=== PATIENT | male | born 2000 | race Caucasian/White ===

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

== ENCOUNTER 2023-10-13 01:50 | Emergency (ER) | payer BC, MEDICAID ==
[~2023-10-13] VITALS: Ht 182.9 cm; Wt 113.4 kg
[~2023-10-13 01:50] MED LIST: CLOT1CRE90 TP
[2023-10-13 01:55] VITALS: BP 132/83; PULSE 87; RESP 17; TEMP 97.8; O2SAT 100
[2023-10-13] MEDS ORDERED: MORPHINE SULFATE 4 MG/ML SYR IVP ONE (02:30)
[2023-10-13] MEDS ORDERED: ONDANSETRON 4 MG/2 ML VIAL IVP ONE (02:30)
[2023-10-13] MEDS ORDERED: NACL 0.9% 1,000 ML IV ONE (02:30)
[2023-10-13 03:00] LABS: BASOPHILS # (AUTO) 0.1 K/uL (0.00-0.22); BASOPHILS % (AUTO) 0.6 % (0.0-2.0); EOSINOPHILS # (AUTO) 0.4 K/uL (0-0.4); EOSINOPHILS % (AUTO) 4.3 % (0.0-4.0); HEMATOCRIT 43.3 % (36-52); HEMOGLOBIN 15.3 g/dL (12.0-18.0); LYMPHOCYTES # (AUTO) 2.2 K/uL (2.0-11.5); LYMPHOCYTES % (AUTO) 21.5 % (20.5-51.1); MEAN CORPUSCULAR HEMOGLOBIN 28 pg (27-31); MEAN CORPUSCULAR HGB CONC 35 g/dL (33-37); MONOCYTES # (AUTO) 1.2 K/uL (0.8-1.0); MONOCYTES % (AUTO) 11.7 % (1.7-9.3); NEUTROPHILS # (AUTO) 6.4 K/uL (1.8-7.7); NEUTROPHILS % (AUTO) 61.9 % (42.2-75.2); PLATELET COUNT (AUTO) 231 K/uL (140-450); RED BLOOD CELL COUNT(AUTO) 5.41 MIL/uL (4.20-6.10); RED CELL DISTRIBUTION WIDTH 13.9 % (11.6-13.7); WHITE BLOOD COUNT (AUTO) 10.3 K/uL (4.8-10.8)
[2023-10-13 03:10] LABS: ANION GAP 10.2 (8-16); CALCIUM 8.7 mg/dL (8.5-10.1); CARBON DIOXIDE 30.5 mmol/L (21-32); CREATININE 0.8 mg/dL (0.6-1.3); POTASSIUM 3.7 mmol/L (3.5-5.1)
[2023-10-13 03:13] LABS: ALBUMIN 3.5 g/dL (3.4-5.0); BILIRUBIN,DIRECT 0.2 mg/dL (0.0-0.3); TOTAL BILIRUBIN 0.6 mg/dL (0.0-1.0); TOTAL PROTEIN, SERUM 8.6 g/dL (6.4-8.2)
[2023-10-13] MEDS ORDERED: KETOROLAC 30 MG/ML VIAL IVP ONE (03:35)
[2023-10-13] MEDS ORDERED: IBUP-2218 PO (04:32)
[2023-10-13] MEDS ORDERED: ONDA-188 SL (04:32)
[2023-10-13] MEDS ORDERED: ACET-8905 PO (04:32)
[2023-10-13 04:43] VITALS: BP 132/83; PULSE 87; RESP 17; TEMP 97.8; O2SAT 100
== END 2023-10-13 04:42 | disposition home or self-care (01) ==
LOC: MED 01:50
DX: K80.20 Calculus of gallbladder without cholecystitis without obstruction (principal); Z79.899 Other long term (current) drug therapy; Z79.1 Long term (current) use of non-steroidal anti-inflammatories (NSAID)
CPT/HCPCS: 36415; 76705; 80048; 80076; 83605; 83690; 85025; 87040; 96361; 96374; 96375; 99285; J1885; J2270; J2405; J7030; Q0092

== ENCOUNTER 2024-03-24 16:20 | Emergency (ER) | payer MEDICAID ==
[~2024-03-24] VITALS: Ht 182.9 cm; Wt 108.9 kg
[~2024-03-24 16:20] MED LIST changes: +ACET-8905 PO; +IBUP-2218 PO; +ONDA-188 SL
[2024-03-24 16:50] VITALS: BP 139/90; PULSE 74; RESP 20; TEMP 97.6
[2024-03-24 17:22] LABS: BASOPHILS # (AUTO) 0.1 K/uL (0.00-0.22); BASOPHILS % (AUTO) 0.5 % (0.0-2.0); EOSINOPHILS # (AUTO) 0.2 K/uL (0-0.4); EOSINOPHILS % (AUTO) 1.6 % (0.0-4.0); HEMATOCRIT 45.3 % (36-52); HEMOGLOBIN 15.3 g/dL (12.0-18.0); LYMPHOCYTES # (AUTO) 1.5 K/uL (2.0-11.5); LYMPHOCYTES % (AUTO) 12.4 % (20.5-51.1); MEAN CORPUSCULAR HEMOGLOBIN 27 pg (27-31); MEAN CORPUSCULAR HGB CONC 34 g/dL (33-37); MONOCYTES # (AUTO) 1.2 K/uL (0.8-1.0); MONOCYTES % (AUTO) 9.7 % (1.7-9.3); NEUTROPHILS # (AUTO) 9.3 K/uL (1.8-7.7); NEUTROPHILS % (AUTO) 75.8 % (42.2-75.2); PLATELET COUNT (AUTO) 254 K/uL (140-450); RED BLOOD CELL COUNT(AUTO) 5.59 MIL/uL (4.20-6.10); RED CELL DISTRIBUTION WIDTH 14.4 % (11.6-13.7); WHITE BLOOD COUNT (AUTO) 12.3 K/uL (4.8-10.8)
[2024-03-24 17:38] LABS: ANION GAP 16.7 (8-16); CARBON DIOXIDE 23.8 mmol/L (21-32); POTASSIUM 3.5 mmol/L (3.5-5.1)
[2024-03-24 17:55] LABS: BILIRUBIN,DIRECT 0.6 mg/dL (0.0-0.3); TOTAL BILIRUBIN 1.3 mg/dL (0.0-1.0); TOTAL PROTEIN, SERUM 7.7 g/dL (6.4-8.2)
[2024-03-24] MEDS: KETOROLAC 30 MG/ML VIAL IVP ONE (18:03)
[2024-03-24 18:21] LABS: BILIRUBIN,URINE 1+ (NEGATIVE); BLOOD, URINE NEGATIVE (NEGATIVE); COLOR,URINE YELLOW (YELLOW); LEUKOCYTE ESTERASE ,URINE 1+ (NEGATIVE); NITRITE, URINE NEGATIVE (NEGATIVE); PROTEIN,URINE TRACE (NEGATIVE); UGLUCOSE NEGATIVE (NEGATIVE)
[2024-03-24 18:24] LABS: APPEARANCE,URINE SLIGHTLY HAZY (CLEAR)
[2024-03-24 18:26] LABS: BACTERIA,URINE 1+ /HPF (None Seen); ICTOTEST POSITIVE (NEGATIVE); RBC,URINE 0 /HPF (0-5); SQUAMOUS EPITHELIAL CELL,UR 4-10 (MOD) /LPF (0-3 (FEW)); WBC,URINE 0-5 /HPF (0-5)
[2024-03-24 18:27] LABS: MUCUS,URINE None Seen /LPF (None Seen)
[2024-03-24] MEDS ORDERED: cefTRIAXone 1,000 MG VIAL ONE ×2 (19:10→19:29)
[2024-03-24 21:05] VITALS: BP 140/94; PULSE 70; RESP 18; O2SAT 97
[2024-03-24] MEDS ORDERED: METR-435 PO (21:43)
== END 2024-03-24 21:56 | disposition home or self-care (01) ==
LOC: MED 16:20
DX: N39.0 Urinary tract infection, site not specified (principal); K81.0 Acute cholecystitis; Z79.899 Other long term (current) drug therapy
CPT/HCPCS: 36415; 76705; 80048; 80076; 81001; 83690; 85025; 87040; 87086; 93005; 96365; 96375; 99285; J0696; J1885; Q0092

== ENCOUNTER 2024-04-09 23:00 | Emergency (ER) | payer MEDICAID ==
[~2024-04-09] VITALS: Ht 182.9 cm; Wt 105.2 kg
[~2024-04-09 23:00] MED LIST changes: +METR-435 PO
[2024-04-09 23:24] VITALS: BP 155/68; PULSE 85; RESP 20; TEMP 98.4; O2SAT 98
[2024-04-09] MEDS: ONDANSETRON 4 MG ODT PO ONE (23:31)
[2024-04-10 01:32] VITALS: BP 126/87; PULSE 93; RESP 18; O2SAT 99
[2024-04-10] MEDS ORDERED: FAMO-90 PO (01:33)
[2024-04-10] MEDS ORDERED: SUCR1TAB56 PO (01:33)
== END 2024-04-10 01:40 | disposition home or self-care (01) ==
LOC: MED 23:00
DX: R11.2 Nausea with vomiting, unspecified (principal); R10.13 Epigastric pain; I10 Essential (primary) hypertension; Z79.899 Other long term (current) drug therapy
CPT/HCPCS: 81002; 99283; Q0162

== ENCOUNTER 2024-04-26 00:08 | Emergency (ER) | payer MEDICAID ==
[~2024-04-26] VITALS: Ht 182.9 cm; Wt 104.3 kg
[~2024-04-26 00:08] MED LIST changes: +FAMO-90 PO; +SUCR1TAB56 PO
[2024-04-26 00:16] VITALS: BP 135/72; PULSE 83; RESP 20; TEMP 96.2; O2SAT 99
[2024-04-26] MEDS: KETOROLAC 60 MG/2 ML VIAL IM ONE (01:55)
[2024-04-26 02:15] LABS: ANION GAP 12.1 (8-16); CALCIUM 9.2 mg/dL (8.5-10.1); CARBON DIOXIDE 28.3 mmol/L (21-32); POTASSIUM 3.4 mmol/L (3.5-5.1)
[2024-04-26 02:16] LABS: APPEARANCE,URINE CLEAR (CLEAR); BILIRUBIN,URINE NEGATIVE (NEGATIVE); BLOOD, URINE NEGATIVE (NEGATIVE); COLOR,URINE YELLOW (YELLOW); LEUKOCYTE ESTERASE ,URINE NEGATIVE (NEGATIVE); NITRITE, URINE NEGATIVE (NEGATIVE); PROTEIN,URINE NEGATIVE (NEGATIVE); UGLUCOSE NEGATIVE (NEGATIVE)
[2024-04-26 02:22] LABS: ALBUMIN 3.9 g/dL (3.4-5.0); BILIRUBIN,DIRECT 0.6 mg/dL (0.0-0.3); TOTAL BILIRUBIN 1.3 mg/dL (0.0-1.0); TOTAL PROTEIN, SERUM 7.2 g/dL (6.4-8.2)
[2024-04-26 02:39] LABS: BASOPHILS # (AUTO) 0.1 K/uL (0.00-0.22); BASOPHILS % (AUTO) 0.6 % (0.0-2.0); EOSINOPHILS # (AUTO) 0.2 K/uL (0-0.4); HEMATOCRIT 42.3 % (36-52); HEMOGLOBIN 14.8 g/dL (12.0-18.0); LYMPHOCYTES # (AUTO) 1.9 K/uL (2.0-11.5); LYMPHOCYTES % (AUTO) 20.9 % (20.5-51.1); MEAN CORPUSCULAR HEMOGLOBIN 29 pg (27-31); MEAN CORPUSCULAR HGB CONC 35 g/dL (33-37); MEAN CORPUSCULAR VOLUME 82.6 fL (80-94); MONOCYTES # (AUTO) 0.8 K/uL (0.8-1.0); MONOCYTES % (AUTO) 9.1 % (1.7-9.3); NEUTROPHILS # (AUTO) 6.1 K/uL (1.8-7.7); NEUTROPHILS % (AUTO) 67.4 % (42.2-75.2); PLATELET COUNT (AUTO) 226 K/uL (140-450); RED BLOOD CELL COUNT(AUTO) 5.13 MIL/uL (4.20-6.10); RED CELL DISTRIBUTION WIDTH 14.1 % (11.6-13.7)
[2024-04-26] MEDS ORDERED: TRAM-748 PO (02:53)
[2024-04-26] MEDS ORDERED: NAPR-1704 PO (02:53)
[2024-04-26 03:01] VITALS: BP 135/72; PULSE 83; RESP 20; TEMP 96.2; O2SAT 99
== END 2024-04-26 03:01 | disposition home or self-care (01) ==
LOC: MED 00:08
DX: K80.50 Calculus of bile duct without cholangitis or cholecystitis without obstruction (principal); I10 Essential (primary) hypertension; Z79.1 Long term (current) use of non-steroidal anti-inflammatories (NSAID); Z79.899 Other long term (current) drug therapy
CPT/HCPCS: 36415; 80048; 80076; 81003; 82150; 83690; 85025; 96372; 99283; J1885

== ENCOUNTER 2024-06-03 22:23 | Inpatient (IN) | payer MEDICAID ==
[~2024-06-03] VITALS: Ht 182.9 cm; Wt 104.3 kg
[~2024-06-03 22:23] MED LIST changes: +NAPR-1704 PO
[2024-06-03 22:31] VITALS: BP 152/111; PULSE 78; RESP 20; TEMP 97.8; O2SAT 100
--- NOTE | 2024-06-03 22:45 | NUR ---
to bed 12 following triage
[2024-06-03] MEDS: ONDANSETRON 4 MG/2 ML VIAL IVP ONE (22:56)
[2024-06-03] MEDS: MORPHINE SULFATE 4 MG/ML SYR IVP ONE ×2 (22:57→23:50)
--- NOTE | 2024-06-03 23:05 | NUR ---
Ultrasound at bedside.
[2024-06-03 23:09] LABS: BASOPHILS # (AUTO) 0.1 K/uL (0.00-0.22); BASOPHILS % (AUTO) 0.4 % (0.0-2.0); EOSINOPHILS # (AUTO) 0.1 K/uL (0-0.4); HEMATOCRIT 43.2 % (36-52); HEMOGLOBIN 14.7 g/dL (12.0-18.0); MEAN CORPUSCULAR HEMOGLOBIN 28 pg (27-31); MEAN CORPUSCULAR HGB CONC 34 g/dL (33-37); MEAN CORPUSCULAR VOLUME 82.1 fL (80-94); MONOCYTES # (AUTO) 1.1 K/uL (0.8-1.0); MONOCYTES % (AUTO) 8.2 % (1.7-9.3); NEUTROPHILS # (AUTO) 10.3 K/uL (1.8-7.7); NEUTROPHILS % (AUTO) 75.4 % (42.2-75.2); PLATELET COUNT (AUTO) 239 K/uL (140-450); RED BLOOD CELL COUNT(AUTO) 5.27 MIL/uL (4.20-6.10); RED CELL DISTRIBUTION WIDTH 14.5 % (11.6-13.7); WHITE BLOOD COUNT (AUTO) 13.6 K/uL (4.8-10.8)
--- NOTE | 2024-06-03 23:17 | NUR ---
ULTRASOUND AT BEDSIDE
--- NOTE | 2024-06-03 23:17 | NUR ---
URINE AND BLOOD COLLECTED
[2024-06-03 23:23] LABS: APPEARANCE,URINE CLEAR (CLEAR); BILIRUBIN,URINE NEGATIVE (NEGATIVE); BLOOD, URINE NEGATIVE (NEGATIVE); COLOR,URINE YELLOW (YELLOW); LEUKOCYTE ESTERASE ,URINE 1+ (NEGATIVE); NITRITE, URINE NEGATIVE (NEGATIVE); PH,URINE 6.5 (5.0-9.0); PROTEIN,URINE NEGATIVE (NEGATIVE); UGLUCOSE NEGATIVE (NEGATIVE); UROBILINOGEN,URINE 0.2 EU/dL (0.2 - 1)
[2024-06-03 23:39] LABS: BACTERIA,URINE 1+ /HPF (None Seen); MUCUS,URINE 1+ /LPF (None Seen); RBC,URINE 0-5 /HPF (0-5); SQUAMOUS EPITHELIAL CELL,UR 0-3 (FEW) /LPF (0-3 (FEW)); WBC,URINE 20-60 /HPF (0-5)
[2024-06-03 23:39] LABS: ANION GAP 15.4 (8-16); CALCIUM 9.3 mg/dL (8.5-10.1); CARBON DIOXIDE 24.3 mmol/L (21-32); CREATININE 1.1 mg/dL (0.6-1.3)
[2024-06-03] MEDS: NACL 0.9% 1,000 ML IV ONE (23:40)
[2024-06-03 23:47] LABS: POTASSIUM 2.7 mmol/L (3.5-5.1)
[2024-06-04] VITALS (10 sets, daily range): BP systolic 120–142; BP diastolic 61–92; PULSE 75–96; RESP 16–18; TEMP 98.1–100.8; O2SAT 95–100
[2024-06-04] MEDS: POTASSIUM CHL 20 MEQ/NACL 0.9% 1,000 ML IV ONE
[2024-06-04 00:09] LABS: BILIRUBIN,DIRECT 0.3 mg/dL (0.0-0.3); TOTAL BILIRUBIN 0.9 mg/dL (0.0-1.0); TOTAL PROTEIN, SERUM 7.9 g/dL (6.4-8.2)
[2024-06-04 00:12] LABS: MAGNESIUM 1.6 mg/dL (1.8-2.4); PHOSPHORUS 2.1 mg/dL (2.5-4.9)
[2024-06-04] MEDS: MAG SULF 2000 MG/WATER PREMIX 50 ML IV ONE (00:50)
[2024-06-04] MEDS ORDERED: ONDANSETRON 4 MG/2 ML VIAL IVP PRN ×2 (00:50→12:45)
[2024-06-04] MEDS ORDERED: PIPERACILLIN/TAZOBACTAM 3.375 GM VIAL IV ONE (00:51)
[2024-06-04] MEDS: PIPERACILLIN/TAZOBACTAM 3.375 GM in DEXTROSE 5% 50 ML IV ONE (00:51)
[2024-06-04] MEDS: KETOROLAC 30 MG/ML VIAL IVP ONE (00:59)
[2024-06-04] MEDS ORDERED: CLON-1202 PO (01:41)
[2024-06-04] MEDS ORDERED: OMEG100016 PO (01:41)
[2024-06-04] MEDS ORDERED: ATOR10TA PO (01:41)
[2024-06-04] MEDS ORDERED: HYDR-1100 PO (01:41)
[2024-06-04] MEDS ORDERED: GABA400C PO (01:41)
[2024-06-04] MEDS ORDERED: METO5SOL78 PO (01:41)
[2024-06-04] MEDS ORDERED: LOSA-272 PO (01:41)
[2024-06-04] MEDS ORDERED: FERR1TAB42 PO (01:41)
[2024-06-04] MEDS ORDERED: OMEP20TC22 PO (01:41)
[2024-06-04] MEDS ORDERED: ROPI0.2523 PO (01:41)
[2024-06-04] MEDS ORDERED: SINE10 PO (01:41)
[2024-06-04] MEDS ORDERED: TRA200 PO (01:41)
[2024-06-04] MEDS ORDERED: CHOL400T12 PO (01:41)
[2024-06-04] MEDS ORDERED: DOCU-2 PO (01:41)
[2024-06-04] MEDS ORDERED: FURO-570 PO (01:41)
[2024-06-04] MEDS ORDERED: AMLO10TA PO (01:41)
--- NOTE | 2024-06-04 02:22 | NUR ---
Note darline in ED - 06/04/24 at 0228 by NILO Patient will be admitted to care of DR GUAJARDO. Admited to TELE]. Will go to [id number]. Belongings list completed. Report to SULTANA KENT.
--- NOTE | 2024-06-04 04:26 | NUR ---
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 VS WNL. RESP EVEN AND UNLABORED. DENIES PAIN PT WILL BE ADMIT TO HOSPITAL. PENDING ORDERS. FAMILY AT BEDSIDE
--- NOTE | 2024-06-04 04:53 | NUR ---
REPORT GIVEN TO LIZABETH KENT
--- NOTE | 2024-06-04 04:54 | NUR ---
WILL TRANSPORT PT AFTER 3450
--- NOTE | 2024-06-04 05:47 | NUR ---
RECEIVED PATIENT FROM ED AWAKE ALERT ORIENTED WITH THE CC: RIGHT LOWER QUADRANT PAIN. NO ACUTE DISTRESS NOTED. NO COMPLAINTS OF PAIN AT THIS TIME. CONTINUED IVF OF NS WITH KCL 20 MEQ IN 1000 ML AT 100 ML/HR. BED PLACED IN LOW POSITION WHEELS LOCKED BILATERAL SIDE RAILS UP FOR SAFETY. CALL LIGHT WITHIN REACH. MRSA SCREENING DONE.
--- NOTE | 2024-06-04 05:58 | NUR ---
Patient will be admitted to care of [facility]. Admited to [facility]. Will go to room 104 Belongings list completed. Report to LIZABETH KENT.
[2024-06-04 06:43] LABS: BASOPHILS % (AUTO) 0.3 % (0.0-2.0); EOSINOPHILS # (AUTO) 0.1 K/uL (0-0.4); EOSINOPHILS % (AUTO) 0.6 % (0.0-4.0); HEMATOCRIT 40.5 % (36-52); HEMOGLOBIN 13.8 g/dL (12.0-18.0); LYMPHOCYTES # (AUTO) 1.3 K/uL (2.0-11.5); LYMPHOCYTES % (AUTO) 10.9 % (20.5-51.1); MEAN CORPUSCULAR HEMOGLOBIN 28 pg (27-31); MEAN CORPUSCULAR HGB CONC 34 g/dL (33-37); MEAN CORPUSCULAR VOLUME 83.2 fL (80-94); MONOCYTES # (AUTO) 1.2 K/uL (0.8-1.0); MONOCYTES % (AUTO) 9.8 % (1.7-9.3); NEUTROPHILS # (AUTO) 9.6 K/uL (1.8-7.7); NEUTROPHILS % (AUTO) 78.4 % (42.2-75.2); PLATELET COUNT (AUTO) 197 K/uL (140-450); RED BLOOD CELL COUNT(AUTO) 4.87 MIL/uL (4.20-6.10); RED CELL DISTRIBUTION WIDTH 14.1 % (11.6-13.7); WHITE BLOOD COUNT (AUTO) 12.3 K/uL (4.8-10.8)
[2024-06-04 06:51] LABS: ANION GAP 12.1 (8-16); CALCIUM 8.7 mg/dL (8.5-10.1); CARBON DIOXIDE 26.1 mmol/L (21-32); CREATININE 1.2 mg/dL (0.6-1.3); POTASSIUM 4.2 mmol/L (3.5-5.1)
[2024-06-04 06:56] LABS: MAGNESIUM 2.2 mg/dL (1.8-2.4); PHOSPHORUS 4.7 mg/dL (2.5-4.9)
--- NOTE | 2024-06-04 07:05 | NUR ---
ASSUMED CONTINUITY OF CARE. INITIAL ASSESSMENT DONE. KEEP COMFORTABLE ON BED. EXPLAINED DIAGNOSIS, PLAN OF CARE, NPO MD ORDER, PAIN MANAGEMENT TEACHING, USE OF CALL LIGHT/BED/TV/BATHROOM. VERBALIZED UNDERSTANDING. CALL LIGHT WITHIN REACH.
--- NOTE | 2024-06-04 09:00 | NUR ---
DR. SETH CAME AND SEEN PT..
[2024-06-04 09:04] LABS: ALBUMIN 3.4 g/dL (3.4-5.0); ANION GAP 13.2 (8-16); CALCIUM 8.8 mg/dL (8.5-10.1); CREATININE 1.2 mg/dL (0.6-1.3); POTASSIUM 4.2 mmol/L (3.5-5.1); TOTAL BILIRUBIN 1.2 mg/dL (0.0-1.0); TOTAL PROTEIN, SERUM 6.8 g/dL (6.4-8.2)
[2024-06-04] MEDS ORDERED: DEXT 5% / NACL 0.9% 500 ML IV SCH (10:35)
[2024-06-04] MEDS: fentaNYL citrate 0.05 MG/ML VIAL ONE (11:07)
[2024-06-04] MEDS: PROPOFOL 200 MG/20 ML VIAL IV ONE (11:07)
[2024-06-04] MEDS: SUCCINYLCHOLINE CHLORIDE 200 MG/10 ML VIAL IVP ONE (11:10)
[2024-06-04] MEDS: ROCURONIUM 50 MG/5 ML VIAL IV ONE (11:10)
--- NOTE | 2024-06-04 11:15 | NUR ---
WENT TO OR VIA [facility] WITH OR NURSE BANSAL FOR ERCP PROCEDURE.
[2024-06-04] MEDS: LIDOCAINE 2% 100 MG/5 ML SYR IVP ONE (11:59)
[2024-06-04] MEDS: DEXAMETHASONE 4 MG/ML VIAL ONE (12:10)
[2024-06-04] MEDS: METOCLOPRAMIDE 10 MG/2 ML INJ VIAL ONE (12:10)
[2024-06-04] MEDS: ONDANSETRON 4 MG/2 ML VIAL ONE (12:10)
[2024-06-04] MEDS: GLUCAGON 1 MG VIAL ONE (12:12)
[2024-06-04] MEDS ORDERED: HYDROmorphone 1 MG/ML AMP IVP PRN (12:45)
[2024-06-04] MEDS ORDERED: MEPERIDINE 25 MG/ML SYR IVP PRN (12:45)
[2024-06-04] MEDS ORDERED: SEVOFLURANE 250 ML BTL INH ONE (12:48)
--- NOTE | 2024-06-04 13:27 | NUR ---
CAME BACK FROM OR VIA [employer]. A & O X4. NO C/O PAIN. KEEP COMFORTABLE ON BED. CALL LIGHT WITHIN REACH. WILL MONITOR.
[2024-06-04] MEDS: DEXT 5% / NACL 0.9% 1,000 ML IV SCH (13:54)
--- NOTE | 2024-06-04 14:00 | NUR ---
WENT TO BATHROOM WITHOUT ASSISTANCE. TOLERATED WELL. NO C/O PAIN.
[2024-06-04] MEDS: PIPERACILLIN/TAZOBACTAM 3.375 GM in DEXTROSE 5% 50 ML IV SCH (14:09)
--- NOTE | 2024-06-04 15:28 | NUR ---
PAGED DR. SETH REGARDING TEMP 100.8. INFORMED CHARGE NURSE NICOLÁS RIVERS.
--- NOTE | 2024-06-04 15:40 | NUR ---
WENT TO BATHROOM WITHOUT ASSISTANCE. HAD STEADY GAIT AND BALANCE. NO C/O PAIN.
[2024-06-04] MEDS: ACETAMINOPHEN 325 MG TAB PO PRN (15:46)
--- NOTE | 2024-06-04 19:05 | NUR ---
REPORT GIVEN TO LEWIS RIVERS. IVF INFUSING WELL. IN STABLE CONDITION.
--- NOTE | 2024-06-04 19:12 | NUR ---
RECEIVED REPORT FROM DAY SHIFT NURSE FOR CONTINUITY OF CARE. PT AWAKE, ALERT AND ORIENTED X 4, FAMILY AT BEDSIDE. ON ROOM AIR,,BREATHING EVEN AND UNLABORED. NO S/S OF DISTRESS. DENIES PAIN AT THIS TIME. PLAN OF CARE DISCUSSED.ALL SAFETY PRECAUTIONS IN PLACE. CALL LIGHT WITHIN REACH.
--- NOTE | 2024-06-04 21:00 | NUR ---
SCHEDULED MEDICATIONS GIVEN. PT TOLERATED WELL. NO DISTRESS NOTED.
[2024-06-04] MEDS: MORPHINE SULFATE 4 MG/ML SYR IVP PRN (22:46)
[2024-06-05] VITALS (11 sets, daily range): BP systolic 111–135; BP diastolic 2–79; PULSE 76–98; RESP 18–20; TEMP 97.8–99.5; O2SAT 94–100
--- NOTE | 2024-06-05 00:20 | NUR ---
PT ASLEEP AT THIS TIME. VISIBLE CHEST RISE AND FALL NOTED. BREASTING EVEN AND UNLABORED.NO S/S OF DISTRESS.ALL PRECAUTIONS IN PLACE. CALL LIGHT WITHIN REACH.
[2024-06-05] MEDS: HYDROcodone/APAP 5/325 MG 1 TAB TAB PO PRN (01:49)
[2024-06-05 06:42] LABS: BASOPHILS % (AUTO) 0.1 % (0.0-2.0); HEMATOCRIT 40.1 % (36-52); HEMOGLOBIN 13.7 g/dL (12.0-18.0); LYMPHOCYTES # (AUTO) 0.7 K/uL (2.0-11.5); MEAN CORPUSCULAR HEMOGLOBIN 29 pg (27-31); MEAN CORPUSCULAR HGB CONC 34 g/dL (33-37); MONOCYTES # (AUTO) 1.5 K/uL (0.8-1.0); MONOCYTES % (AUTO) 10.1 % (1.7-9.3); NEUTROPHILS # (AUTO) 12.7 K/uL (1.8-7.7); NEUTROPHILS % (AUTO) 84.8 % (42.2-75.2); PLATELET COUNT (AUTO) 157 K/uL (140-450); RED BLOOD CELL COUNT(AUTO) 4.77 MIL/uL (4.20-6.10); WHITE BLOOD COUNT (AUTO) 14.9 K/uL (4.8-10.8)
[2024-06-05 06:57] LABS: ANION GAP 13.6 (8-16); CALCIUM 8.6 mg/dL (8.5-10.1); CARBON DIOXIDE 23.7 mmol/L (21-32); CREATININE 1.2 mg/dL (0.6-1.3); POTASSIUM 3.3 mmol/L (3.5-5.1)
[2024-06-05 07:02] LABS: INR 1.37 (0.8-1.2); PARTIAL THROMBOPLASTIN TIME 32.3 secs (22-35.6); PROTHROMBIN TIME 14.2 secs (10.8-13.4)
--- NOTE | 2024-06-05 09:00 | NUR ---
Patient's Plan of Care was discussed and reviewed with HEDIS SPECIALIST: MATT
[2024-06-05] MEDS: POTASSIUM CHLORIDE 20 MEQ, LIDOCAINE 1% 25 MG in NACL 0.9% 250 ML IV SCH (09:15)
--- NOTE | 2024-06-05 10:17 | NUR ---
CALLED LAB AT #[id number] SPOKE TO RACHEL REGARDING STAT ORDER OF LFT.
[2024-06-05] MEDS ORDERED: MORPHINE SULFATE 4 MG/ML SYR IVP PRN (10:25)
--- NOTE | 2024-06-05 10:41 | NUR ---
PATIENT HAS BEEN SCREENED AND CATEGORIZED LOW NUTRITION RISK. PATIENT WILL BE SEEN WITHIN 7 DAYS OF ADMISSION. 06/11/[address]
[2024-06-05 11:22] LABS: BILIRUBIN,DIRECT 0.6 mg/dL (0.0-0.3); TOTAL PROTEIN, SERUM 6.7 g/dL (6.4-8.2)
--- NOTE | 2024-06-05 13:30 | NUR ---
A DOSE OF ZOSYN 3.375 GM IV SCHEDULED FOR 1300 GIVEN TO OR NURSE -GASTON TO BE GIVEN TO PT. PRIOR TO SURGERY.
[2024-06-05] MEDS ORDERED: SEVOFLURANE 250 ML BTL INH ONE (13:40)
--- NOTE | 2024-06-05 13:40 | NUR ---
WENT TO OR VIA [facility]UR[facility] WITH OR NURSES FOR PROCEDURE WITH DR. QUIÑONES. IN STABLE CONDITION.
[2024-06-05] MEDS: HYDROmorphone PFS 2 MG/ML SYR ONE (13:50)
[2024-06-05] MEDS: ROCURONIUM 50 MG/5 ML VIAL IV ONE (14:05)
[2024-06-05] MEDS: PROPOFOL 200 MG/20 ML VIAL IV ONE (14:05)
[2024-06-05] MEDS: SUCCINYLCHOLINE CHLORIDE 200 MG/10 ML VIAL IVP ONE (14:05)
[2024-06-05] MEDS: DEXAMETHASONE 4 MG/ML VIAL ONE ×2 (14:08)
[2024-06-05] MEDS: ONDANSETRON 4 MG/2 ML VIAL ONE (14:08)
[2024-06-05] MEDS: ePHEDrine 50 MG/ML VIAL ONE (14:08)
[2024-06-05] MEDS: ACETAMINOPHEN 100 ML IV ONE (14:17)
[2024-06-05] MEDS: GLYCOPYRROLATE 0.2 MG/ML VIAL ONE ×2 (15:11)
[2024-06-05] MEDS: PHENYLEPHRINE 10 MG/ML VIAL ONE (15:11)
[2024-06-05] MEDS: NEOSTIGMINE 1:1000 10 MG/10 ML VIAL ONE (15:11)
[2024-06-05] MEDS: LIDOCAINE/EPI 1% 1:100000 20 ML VIAL INJ ONE (15:20)
[2024-06-05] MEDS: LACTATED RINGERS 1,000 ML IV SCH (15:25)
--- NOTE | 2024-06-05 16:10 | NUR ---
CAME BACK FROM OR VIA GURNEY. IN STABLE CONDITION. KEEP COMFORTABLE ON BED. WILL CHECK POST-OP VS.
--- NOTE | 2024-06-05 19:04 | NUR ---
REPORT GIVEN TO LEWIS RIVERS. IVF INFUSING WELL. IN STABLE CONDITION.
--- NOTE | 2024-06-05 19:05 | NUR ---
RECEIVED REPORT FROM DAY SHIFT NURSE FOR CONTINUITY OF CARE. PT AWAKE, ALERT AND ORIENTED X 4, FAMILY AT BEDSIDE. ON ROOM AIR,,BREATHING EVEN AND UNLABORED. NO S/S OF DISTRESS. DENIES PAIN AT THIS TIME. PT IS STATUS POST LAP CHOLECYSTECTOMY. GABRIELA DRAIN IN PLACE. INCISION SITES WITHOUT DRAINAGE AND ANY SIGNS OF INFECTION..ALL SAFETY PRECAUTIONS IN PLACE. CALL LIGHT WITHIN REACH.
--- NOTE | 2024-06-05 20:05 | NUR ---
SCHEDULED MEDICATIONS GIVEN. PT TOLERATED WELL. NO DISTRESS NOTED.
[2024-06-06] VITALS (8 sets, daily range): BP systolic 131–133; BP diastolic 76–86; PULSE 68–83; RESP 18; TEMP 96.8–99.5; O2SAT 97–100
--- NOTE | 2024-06-06 01:00 | NUR ---
PT ASLEEP AT THIS TIME. VISIBLE CHEST RISE AND FALL NOTED. BREASTING EVEN AND UNLABORED.NO S/S OF DISTRESS.ALL PRECAUTIONS IN PLACE. CALL LIGHT WITHIN REACH.
--- NOTE | 2024-06-06 06:25 | NUR ---
PT IS STABLE. NO ACUTE EVENTS THROUGHOUT THE NIGHT. ALL NEEDS ATTENDED. NO S/S OF DISTRESS AT THIS TIME. DENIES PAIN.ALL SAFETY PRECAUTIONS IN PLACE. CALL LIGHT WITHIN REACH. WILL ENDORSE TO DAY NURSE.
--- NOTE | 2024-06-06 07:00 | NUR ---
RECEIVED PATIENT FROM NIGHT NURSE PATIENT IS ALERT AND ORIENTED X4 ON ROOM AIR IV SITE INTACT IN LEFT AC 20G , 4 SUTURE SITES ON ABDOMEN S/P SX DRESSING IS CLEAN DRY AND INTACT PATIENT HAS NO COMPLAINTS OF PAIN AT THIS TIME SAFETY PRECAUTIONS IN PLACE. [id number]
[2024-06-06 07:04] LABS: BASOPHILS % (AUTO) 0.1 % (0.0-2.0); HEMATOCRIT 36.9 % (36-52); HEMOGLOBIN 12.5 g/dL (12.0-18.0); LYMPHOCYTES # (AUTO) 0.8 K/uL (2.0-11.5); LYMPHOCYTES % (AUTO) 5.7 % (20.5-51.1); MEAN CORPUSCULAR HEMOGLOBIN 28 pg (27-31); MEAN CORPUSCULAR HGB CONC 34 g/dL (33-37); MEAN CORPUSCULAR VOLUME 83.7 fL (80-94); MONOCYTES # (AUTO) 1.3 K/uL (0.8-1.0); MONOCYTES % (AUTO) 9.7 % (1.7-9.3); NEUTROPHILS # (AUTO) 11.4 K/uL (1.8-7.7); NEUTROPHILS % (AUTO) 84.5 % (42.2-75.2); PLATELET COUNT (AUTO) 153 K/uL (140-450); RED BLOOD CELL COUNT(AUTO) 4.41 MIL/uL (4.20-6.10); RED CELL DISTRIBUTION WIDTH 14.4 % (11.6-13.7); WHITE BLOOD COUNT (AUTO) 13.5 K/uL (4.8-10.8)
[2024-06-06 07:10] LABS: ALBUMIN 2.5 g/dL (3.4-5.0); ANION GAP 10.9 (8-16); CALCIUM 8.6 mg/dL (8.5-10.1); CARBON DIOXIDE 25.2 mmol/L (21-32); POTASSIUM 4.1 mmol/L (3.5-5.1); TOTAL BILIRUBIN 1.2 mg/dL (0.0-1.0); TOTAL PROTEIN, SERUM 6.4 g/dL (6.4-8.2)
[2024-06-06] MEDS ORDERED: ACET-8905 PO (10:42)
[2024-06-06] MEDS ORDERED: AMOX-999 PO (10:42)
--- NOTE | 2024-06-06 11:30 | NUR ---
PATIENT AWAKE WITH FAMILY AT BEDSIDE. [id number]
--- NOTE | 2024-06-06 14:42 | NUR ---
PATIENT AWAKE IN BED RESPIRATIONS EVEN AND UNLABORED. [id number]
--- NOTE | 2024-06-06 19:02 | NUR ---
ENDORSED PATIENT TO NIGHT NURSE PATIENT IS STABLE.[id number]
--- NOTE | 2024-06-06 19:03 | NUR ---
RECEIVED REPORT FROM DAY SHIFT NURSE FOR CONTINUITY OF CARE. PT AWAKE, ALERT AND ORIENTED X 4, FAMILY AT BEDSIDE. ON ROOM AIR,,BREATHING EVEN AND UNLABORED. NO S/S OF DISTRESS. DENIES PAIN AT THIS TIME. PT IS STATUS POST LAP CHOLECYSTECTOMY ON 06/05. GABRIELA DRAIN IN PLACE 30ML DRAINED. INCISION SITES WITHOUT DRAINAGE AND ANY SIGNS OF INFECTION..ALL SAFETY PRECAUTIONS IN PLACE. CALL LIGHT WITHIN REACH.
[2024-06-06] MEDS: diphenhydrAMINE 50 MG/ML VIAL IVP PRN (20:56)
--- NOTE | 2024-06-06 21:00 | NUR ---
pt complained of bilateral arm rashes. Pt report no new food or drink intake.Prn Benadryl given.
--- NOTE | 2024-06-06 21:00 | NUR ---
SCHEDULED MEDICATIONS GIVEN. PT TOLERATED WELL. NO DISTRESS NOTED.
--- NOTE | 2024-06-07 01:12 | NUR ---
PT ASLEEP AT THIS TIME. VISIBLE CHEST RISE AND FALL NOTED. BREASTING EVEN AND UNLABORED.NO S/S OF DISTRESS.ALL PRECAUTIONS IN PLACE. CALL LIGHT WITHIN REACH.
[2024-06-07 04:00] VITALS: BP 111/76; PULSE 69; RESP 18; TEMP 98.9; O2SAT 96
--- NOTE | 2024-06-07 07:28 | NUR ---
PT IS STABLE. NO ACUTE EVENTS THROUGHOUT THE NIGHT. ALL NEEDS ATTENDED. NO S/S OF DISTRESS AT THIS TIME. DENIES PAIN.ALL SAFETY PRECAUTIONS IN PLACE. CALL LIGHT WITHIN REACH. WILL ENDORSED TO DAY NURSE.
[2024-06-07 08:00] VITALS: BP 142/89; PULSE 68; PULSE 79; RESP 16; RESP 18; TEMP 98.5; O2SAT 98
--- NOTE | 2024-06-07 10:09 | NUR ---
Per AM rounds, no new orders for CM at this time. Surgery to clear, possible DC today.
[2024-06-07] MEDS ORDERED: NITR100C7 PO (11:05)
[2024-06-07] MEDS: NITROFURANTOIN 100 MG CAP PO SCH (12:59)
[2024-06-07 15:08] VITALS: BP 142/89; PULSE 68; RESP 16; TEMP 98.5
--- NOTE | 2024-06-07 15:20 | NUR ---
RECEIVED ORDER TO FOLLOW UP WITH [facility] [phone] CALLED BUT UNABLE TO TAKE PATIENT DUE TO NOT BEING ASSIGNED PCP. CALLED CM FROM [facility] [phone] WHO GAVE PCP BILLIE COSTA [phone] LOCATED AT [address] [address]. FOR 06/11/2024 AT 0930. APPOINTMENT SLIP GIVEN TO PATIENT AT BEDSIDE.
--- NOTE | 2024-06-07 15:51 | NUR ---
Verbalized understanding of discharge instructions,wound ,drain care and appointment with surgeon,v/s stable,no complaints, iv removed,discharged to mother at this time.
== END 2024-06-07 15:30 | disposition home or self-care (01) | DRG 710 ==
LOC: MED 22:23 → MMU 06-04 01:09 → MTU 06-04 04:59
PROVIDERS: ADMIT Student in an Organized Health Care Education/Training Program; ATTEND Student in an Organized Health Care Education/Training Program
PROC: 0FPB8DZ Removal of Intraluminal Device from Hepatobiliary Duct, Via Natural or Artificial Opening Endoscopic (ICD-10-PCS; 2024-06-04)
PROC: 0F7C8ZZ Dilation of Ampulla of Vater, Via Natural or Artificial Opening Endoscopic (ICD-10-PCS; 2024-06-04)
PROC: BF101ZZ Fluoroscopy of Bile Ducts using Low Osmolar Contrast (ICD-10-PCS; 2024-06-04)
PROC: 0FT44ZZ Resection of Gallbladder, Percutaneous Endoscopic Approach (ICD-10-PCS; principal; 2024-06-05 11:30)
DX: A41.9 Sepsis, unspecified organism (principal); K65.9 Peritonitis, unspecified; K81.0 Acute cholecystitis; K82.A1 Gangrene of gallbladder in cholecystitis; R74.01 Elevation of levels of liver transaminase levels; Z79.891 Long term (current) use of opiate analgesic; Z79.899 Other long term (current) drug therapy; N39.0 Urinary tract infection, site not specified; B95.2 Enterococcus as the cause of diseases classified elsewhere
CPT/HCPCS: 36415; 76705; 80048; 80053; 80076; 81001; 83605; 83690; 83735; 84100; 85025; 85610; 85730; 87040; 87081; 87086; 87186; 88304; 96365; 96366; 96375; 96376; 99291; C1769; C1773; J0330; J1100; J1170; J1200; J1610; J1885; J2001; J2270; J2405; J2543; J2704; J2710; J2765; J3010; J3475; J3480; J3490; J7030; J7060; J7120; Q0092; Q9967